=== PATIENT | male | born 1965 | race Caucasian/White ===

== ENCOUNTER 2016-07-12 15:31 | Inpatient (IN) | payer BC ==
[~2016-07-12] VITALS: Ht 177.8 cm; Wt 99.1 kg
[2016-07-12] MEDS ORDERED: SIMV40TA2 PO (18:03)
[2016-07-12] MEDS ORDERED: NVLG (18:07)
[2016-07-12] MEDS ORDERED: ASPI81TA28 PO (18:08)
[2016-07-12] MEDS ORDERED: CYCL10TA6 PO (18:09)
[2016-07-12] MEDS ORDERED: INSPMPNVLG (18:11)
[2016-07-12] MEDS ORDERED: NVLGI7030 SC (18:14)
[2016-07-12 18:16] VITALS: BMI 31.3
[2016-07-12] MEDS ORDERED: GLUCOSE 10 TABS/TUBE PO PRN (18:30)
[2016-07-12] MEDS ORDERED: ACETAMINOPHEN 325 MG TAB PO PRN (18:30)
[2016-07-12] MEDS ORDERED: DEXTROSE 50% 50 ML SYR IV PRN (18:30)
[2016-07-12] MEDS ORDERED: GLUCAGON FOR INJ 1 MG VIAL SQ PRN (18:30)
[2016-07-12] MEDS ORDERED: ALUMINUM/MAGNESIUM/SIMETH (MAALOX MAX) 30 ML UDC PO PRN (18:30)
[2016-07-12] MEDS ORDERED: GLUCOSE 40% GEL 15 GM TUBE PO PRN (18:30)
[2016-07-12] MEDS ORDERED: MAGNESIUM HYDROXIDE SUSP 30 ML UDC PO PRN (18:30)
[2016-07-12] MEDS ORDERED: ONDANSETRON INJ 2 MG/ML 2 ML VIAL IV PRN (18:30)
[2016-07-12 18:47] VITALS: BP 159/82; PULSE 94; TEMP 36.7; O2SAT 98
[2016-07-12] MEDS ORDERED: PATIENT'S ALLERGY INFO NEEDS ENTERED SCH (19:15)
--- NOTE | 2016-07-12 19:30 | History and Physical ---
History & Physical Date & Time of Service: Jul 12, 2016 at 19:22 Chief Complaint: Kidney Stone Primary Care Physician: No Doctor, Assigned History of Present Illness Source: patient Pt is a 50 yo male with hx of DM I on the insulin pump who presents to [facility] as a transfer from [facility] for ureteral stone management. Pt states he was diagnosed with a 7 mm stone last saturday by his urologist and was scheduled for extraction fo the stone next saturday. Pt was discharged on percocet for pain and states pain became unbearable. Pt presented to [place] [facility] today and unfortunately urology services were unavailable this weekend. Pt denies any fevers, chills, and states pain in 12/08 at this time. Pt also reports associated constipation from narcotics he was taking at home which he states added to his discomfort. Social History Smoking Status: Unknown if Ever Smoked Allergies Coded Allergies: No Known Allergies (Unverified , 07/12/16) Home Medications Scheduled Aspirin (Aspirin Ec), 81 MG PO DAILY Cyclobenzaprine Hcl (Flexeril), 1 TAB PO TID Insulin Aspart (novoLOG INSULIN PUMP ), 25 EA N/A DAILY Insulin Aspart 70/30 (Novolog Mix 70/30), 12 SC TIDM Simvastatin (Zocor), 40 MG PO QPM Review of Systems Constitutional: No chills, No fever Respiratory: No cough, No shortness of breath, No sputum Cardiovascular: No chest pain, No orthopnea Abdomen: + constipation, + nausea, + pain, No vomiting Musculoskeletal: No joint pain, No muscle pain Genitourinary - Male: No dysuria, No hematuria Neurologic: No paralysis, No weakness Endocrine: No excessive thirst, No fatigue Physical Exam Vital Signs Date Time Temp Pulse Resp B/P Pulse Ox O2 Delivery O2 Flow Rate FiO2 07/12/16 18:47 36.7 94 16 159/82 98 Room Air 07/12/16 18:16 Room Air General Appearance: WD/WN, + mild distress Neck: supple, no adenopathy Respiratory/Chest: chest non-tender, lungs clear, normal breath sounds Cardiovascular: no edema, no gallop Abdomen/GI: normal bowel sounds, non tender, soft, no organomegaly Neurologic/Psych: alert, oriented x 3 Diagnostics Laboratory Results Results Past 24 Hours Test 07/12/16 19:00 Range/Units Impression Assessment and Plan Pt is a 50 yo male with hx of DM I on insulin pump who presents as a transfer from [facility] for ureteral stone management as urology services were not available this weekend. Ureteral stone - 7 mm per patient. Will obtain records at this time. Start on IVF and flomax at this time. Will order CBC, BMP. Zofran 4 mg IV q 4 hr PRN nausea and morphine 2 mg IV q 3 hr PRN pain. Urology has been consulted for further management. Keep NPO after midnight. DM I - Patient may use own insulin pump at this time. Accuchecks. Advanced Directives Existing Advance Directive: No Existing Living Will: No Existing Power of Automotive Engineering Technician: No VTE Prophylaxis VTE Risk Assessment Done? Y/N: Yes Risk Level: Moderate
[2016-07-12 20:09] LABS: BASO % 0.1 %; BASO ABS # 0.01 K/uL (0-0.2); COMPLETE YES; EOS % 0.4 %; HEMATOCRIT 38.5 % (42-52); IG% 0.4 %; LYMPH % 9.2 %; LYMPH ABS # 1.04 K/uL (1.2-3.4); MEAN CELL VOLUME 87.9 fL (80-100); MEAN CORPUSCULAR HEMOGLOBIN 31.1 pg (25-34); MEAN CORPUSCULAR HGB CONC 35.3 g/dl (32-36); MEAN PLATELET VOLUME 9.8 fL (7.4-10.4); MONO % 8.1 %; NEUT % 81.8 %; PLATELET COUNT 261 K/uL (130-400); RED BLOOD COUNT 4.38 M/uL (4.7-6.1); WHITE BLOOD COUNT 11.34 K/uL (4.8-10.8)
[2016-07-12 20:25] LABS: BUN/CREATININE RATIO 8.4 (10-20); CALCIUM 8.8 mg/dl (8.5-10.1); CREATININE 1.4 mg/dl (0.60-1.40); POTASSIUM 4.6 mmol/L (3.5-5.1)
[2016-07-12] MEDS: SODIUM CHLORIDE 0.9% 1000ML 1,000 ML IV SCH (20:47)
[2016-07-12 23:08] VITALS: BP 143/83; PULSE 93; TEMP 36.7; O2SAT 95
[2016-07-13] MEDS: MoRPHine SULFATE 2 MG/ML CARP IV PRN ×4 (00:07→14:35)
[2016-07-13] MEDS: SODIUM CHLORIDE 0.9% 1000ML 1,000 ML IV SCH (05:48)
[2016-07-13 08:00] VITALS: BP 150/84; PULSE 93; TEMP 36.9; O2SAT 95
[2016-07-13 08:10] LABS: URINE APPEARANCE CLEAR (CLEAR); URINE BILIRUBIN NEG (NEG); URINE COLOR YELLOW; URINE NITRITE NEG (NEG); URINE PH 5.5 (4.5-7.5); URINE SPECIFIC GRAVITY 1.015 (1.000-1.030); UROBILINOGEN NEG (NEG)
[2016-07-13 08:11] LABS: MANUAL MICROSCOPIC REQUIRED? NO; REVIEW REQ? NO
[2016-07-13 08:17] LABS: ESTIMATED AVERAGE GLUCOSE 197 mg/dl; HA1C FLAG Normal (Normal)
--- NOTE | 2016-07-13 08:40 | DIAGNOSTIC IMAGING REPORT ---
KUB CLINICAL HISTORY: Right-sided stone. COMPARISON STUDY: CT of the abdomen and pelvis July 07, 2016. FINDINGS: A 9 mm calculus projects over the right transverse process of L3. This is unchanged since CT of July 07, 2016. No additional urinary calculi are identified. Bowel gas pattern is normal. IMPRESSION: No change in position of the 9 mm right ureteropelvic junction calculus. Electronically signed by: Robert Saleh M.D. 07/13/2016 8:38 AM Dictated Date/Time: 07/13/2016 8:36 AM
[2016-07-13 08:49] VITALS: O2SAT 95
[2016-07-13] MEDS ORDERED: POLYETHYLENE (MIRALAX) 17 GM PACK PO SCH (09:00)
[2016-07-13] MEDS ORDERED: TAMSULOSIN HCL 0.4 MG CAP PO SCH (09:00)
--- NOTE | 2016-07-13 09:47 | Urology Consultation ---
History General Date of Service: Jul 13, 2016. Primary Care Physician: No Doctor, Assigned Pt seen a urologist before?: Yes If yes, why?: Dr. Christianson in [place] for stones History of Present Illness 50 year old male admitted with right flank pain for right mid ureteral stone. He was seen by Dr. Christianson in [place] for a 7-8 mm right ureteral stone for which he was to have ULL w/ stent on Sunday 07/16. He was seen in the [place] ER yesterday, however, no urology biomedical electronics technician so was sent to [facility] ER. Pt is currently experiencing right sided pain. This is his first stone. Hx of IDDM- has insulin pump. Reviewed records from [place]- did have KUB 07/12 showing the 7 mm stone at level of L3. UA was clean. No culture. He has remained afebrile and vitals are stable. White count is slightly elevated at 11.51. Creatinine is 1.3 HPI - Stones Location: right, ureter Pain: right flank Imaging Imaging: KUB Laboratory Last 24 Hours Test 07/12/16 19:20 07/12/16 19:50 07/12/16 20:35 07/13/16 00:34 Hepatitis C Antibody Screen NEG White Blood Count 11.34 K/uL Red Blood Count 4.38 M/uL Hemoglobin 13.6 g/dL Hematocrit 38.5 % Mean Corpuscular Volume 87.9 fL Mean Corpuscular Hemoglobin 31.1 pg Mean Corpuscular Hemoglobin Concent 35.3 g/dl Platelet Count 261 K/uL Mean Platelet Volume 9.8 fL Neutrophils (%) (Auto) 81.8 % Lymphocytes (%) (Auto) 9.2 % Monocytes (%) (Auto) 8.1 % Eosinophils (%) (Auto) 0.4 % Basophils (%) (Auto) 0.1 % Neutrophils # (Auto) 9.29 K/uL Lymphocytes # (Auto) 1.04 K/uL Monocytes # (Auto) 0.92 K/uL Eosinophils # (Auto) 0.04 K/uL Basophils # (Auto) 0.01 K/uL RDW Standard Deviation 37.7 fL RDW Coefficient of Variation 11.8 % Immature Granulocyte % (Auto) 0.4 % Immature Granulocyte # (Auto) 0.04 K/uL Sodium Level 136 mmol/L Potassium Level 4.6 mmol/L Chloride Level 99 mmol/L Carbon Dioxide Level 25 mmol/L Anion Gap 12.0 mmol/L Blood Urea Nitrogen 12 mg/dl Creatinine 1.40 mg/dl Est Creatinine Clear Calc Drug Dose 73.7 ml/min Estimated GFR () 66.9 Estimated GFR (Non- 57.8 BUN/Creatinine Ratio 8.4 Random Glucose 253 mg/dl Calcium Level 8.8 mg/dl Bedside Glucose 292 mg/dl 120 mg/dl Test 07/13/16 06:29 07/13/16 06:50 07/13/16 07:50 Bedside Glucose 237 mg/dl Estimated Average Glucose 197 mg/dl Hemoglobin A1c 8.5 % Urine Color YELLOW Urine Appearance CLEAR Urine pH 5.5 Urine Specific Kennard 1.015 Urine Protein NEG Urine Glucose (UA) 3+ Urine Ketones 4+ Urine Occult Blood NEG Urine Nitrite NEG Urine Bilirubin NEG Urine Urobilinogen NEG Urine Leukocyte Esterase NEG Current Inpatient Medications Medications (Trade) Dose Ordered Sig/Lex Route Start Time Stop Time Status Last Admin Dose Admin Acetaminophen (Tylenol Tab) 650 mg Q4H PRN PO 07/12/16 18:30 08/11/16 18:29 Al Hydrox/Mg Hydrox/Simethicone (Maalox Max Susp) 15 ml Q4H PRN PO 07/12/16 18:30 08/11/16 18:29 Magnesium Hydroxide (Milk Of Magnesia Susp) 30 ml Q6H PRN PO 07/12/16 18:30 08/11/16 18:29 Ondansetron HCl (Zofran Inj) 4 mg Q6H PRN IV 07/12/16 18:30 08/11/16 18:29 Morphine Sulfate (MoRPHine SULFATE INJ) 2 mg Q3HWA PRN IV 07/12/16 18:30 07/26/16 18:29 07/13/16 09:24 2 MG Polyethylene (Miralax Powder Packet) 17 gm DAILY PO 07/13/16 09:00 08/12/16 08:59 Glucose (Glucose 40% Gel) 15-30 GRAMS 15 GRAMS... UD PRN PO 07/12/16 18:30 08/11/16 18:29 Glucose (Glucose Chew Tab) 4-8 Tablets 4 Tabl... UD PRN PO 1/12/17 18:30 08/11/16 18:29 Dextrose (Dextrose 50% 50ML Syringe) 25-50ML OF 50% DW IV FOR... UD PRN IV 07/12/16 18:30 08/11/16 18:29 Glucagon (Glucagon Inj) 1 mg UD PRN SQ 07/12/16 18:30 08/11/16 18:29 Tamsulosin HCl 0.4 mg 0.4 mg QAM PO 07/13/16 09:00 08/12/16 08:59 Sodium Chloride 1,000 ml @ 100 mls/hr Q10H IV 07/12/16 19:45 08/11/16 19:44 07/13/16 05:48 100 MLS/HR Cefazolin Sodium/ Sodium Chloride (Ancef Iv/Nss 50ml) 60 ml @ 100 mls/hr PREOP ONCE IV 07/13/16 14:00 07/13/16 14:35 UNV Labs were reviewed and are within normal limits unless listed below. Labs are available in the chart and at [facility] Past History diabetes, other (hyperlipidemia) Past Surgical History: other (insulin pump) Family History Diabetes mellitus FATHER FHx: heart disease MOTHER Social History Hx Tobacco Use In Past Year?: No Smoking: non-smoker Alcohol: no current use Drug use: none Marital status: Occupation status: employed Allergies Coded Allergies: No Known Allergies (Unverified , 07/12/16) Medications Home Medications: Home Meds and Scripts Medications Dose Route/Sig Max Daily Dose Days Date Category Novolog Mix 70/30 (Insulin Aspart Prota 70%/Aspart 30%) Susp 12 SC TIDM 07/12/16 Reported novoLOG INSULIN PUMP (Insulin Aspart) 1 Ea Inj 25 Ea N/A DAILY 07/12/16 Reported Flexeril (Cyclobenzaprine Hcl) 10 Mg Tab 1 Tab PO TID 30 07/12/16 Reported Aspirin Ec (Aspirin) 81 Mg Tab 81 Mg PO DAILY 07/12/16 Reported Zocor (Simvastatin) 40 Mg Tab 40 Mg PO QPM 07/12/16 Reported Inpatient Medications: Current Inpatient Medications Medications (Trade) Dose Ordered Sig/Lex Route Start Time Stop Time Status Last Admin Dose Admin Acetaminophen (Tylenol Tab) 650 mg Q4H PRN PO 07/12/16 18:30 08/11/16 18:29 Al Hydrox/Mg Hydrox/Simethicone (Maalox Max Susp) 15 ml Q4H PRN PO 07/12/16 18:30 08/11/16 18:29 Magnesium Hydroxide (Milk Of Magnesia Susp) 30 ml Q6H PRN PO 07/12/16 18:30 08/11/16 18:29 Ondansetron HCl (Zofran Inj) 4 mg Q6H PRN IV 07/12/16 18:30 08/11/16 18:29 Morphine Sulfate (MoRPHine SULFATE INJ) 2 mg Q3HWA PRN IV 07/12/16 18:30 07/26/16 18:29 07/13/16 09:24 2 MG Polyethylene (Miralax Powder Packet) 17 gm DAILY PO 07/13/16 09:00 08/12/16 08:59 Glucose (Glucose 40% Gel) 15-30 GRAMS 15 GRAMS... UD PRN PO 07/12/16 18:30 08/11/16 18:29 Glucose (Glucose Chew Tab) 4-8 Tablets 4 Tabl... UD PRN PO 07/12/16 18:30 08/11/16 18:29 Dextrose (Dextrose 50% 50ML Syringe) 25-50ML OF 50% DW IV FOR... UD PRN IV 07/12/16 18:30 08/11/16 18:29 Glucagon (Glucagon Inj) 1 mg UD PRN SQ 07/12/16 18:30 08/11/16 18:29 Tamsulosin HCl 0.4 mg 0.4 mg QAM PO 07/13/16 09:00 08/12/16 08:59 Sodium Chloride 1,000 ml @ 100 mls/hr Q10H IV 07/12/16 19:45 08/11/16 19:44 07/13/16 05:48 100 MLS/HR Cefazolin Sodium/ Sodium Chloride (Ancef Iv/Nss 50ml) 60 ml @ 100 mls/hr PREOP ONCE IV 07/13/16 14:00 07/13/16 14:35 UNV Review of Systems Review of Systems Constitutional: No fever Neurological: No dizzy Endocrine: No excessive thirst Gastrointestinal: + see HPI Cardiovascular: No chest pain Skin: No rash Blood / Lymphatic: No bleed easily Ears / Nose / Throat: No hearing loss Psychologic / Mental: No nervous Male : + see HPI Physical Exam Vital Signs: Vital Signs Past 12 Hours Date Time Temp Pulse Resp B/P Pulse Ox O2 Delivery O2 Flow Rate FiO2 07/13/16 08:49 95 Room Air 07/13/16 08:00 36.9 93 17 150/84 95 Room Air 07/13/16 00:00 Room Air 07/12/16 23:08 36.7 93 16 143/83 95 Room Air Physical Exam: General Appearance: WD/WN, no apparent distress Eyes: bilateral eyes normal inspection ENT: hearing grossly normal Neck: supple, no JVD Respiratory/Chest: chest non-tender, lungs clear, normal breath sounds, no respiratory distress, no accessory muscle use Cardiovascular: regular rate, rhythm, no edema, no gallop, no JVD, no murmur Gastrointestinal: Abdomen: normal abdomen (insulin pump) Extremities: normal range of motion, non-tender, normal inspection, no pedal edema, no calf tenderness, normal capillary refill Neurologic/Psychiatric: alert, normal mood/affect, oriented x 3 Skin: normal color, warm/dry, no rash Assessment & Plan Assessment & Plan Imaging: KUB Treatment Planned: cystoscopy w/ stent Right ureteral stone Personally viewed KUB from this am. 8 mm right sided ureteral stone visible near L3. Discussed options of pt - observe vs stent placement. Discussed risks, benefits and answered all questions. He would like to proceed with cystoscopy with right ureteral stent placement. Remains NPO. Called to add on to OR schedule with Dr. Carvalho- all are aware- most likely after 3pm. Consent signed on the chart. Ordered UA, urine culture, CXR and EKG. IV Ancef 2 gm in [facility]SS biomedical electronics technician to OR for preop- did not use Cipro since premixed with D5 W - pt is diabetic- BS this am 286. Recommend sending pt home on Cipro 500 mg BID x 3 days. He may be discharged to home after stent is placed later today. He will keep his ureteroscopy laser litho with Dr. Christianson on Saturday as previously scheduled. Thanks for the consult.
[2016-07-13] MEDS ORDERED: CIPR-255 PO (09:53)
--- NOTE | 2016-07-13 09:58 | DIAGNOSTIC IMAGING REPORT ---
CHEST 2 VIEWS ROUTINE CLINICAL HISTORY: preop COMPARISON STUDY: No previous studies for comparison. FINDINGS: The heart is mildly enlarged. There is aortic tortuosity/ectasia. There is no focal pulmonary consolidation. There is no failure. There are no pleural effusions.[ IMPRESSION: No active disease in the chest. Electronically signed by: Lonnie Salinas M.D. 07/13/2016 9:57 AM Dictated Date/Time: 07/13/2016 9:56 AM
--- NOTE | 2016-07-13 09:58 | Discharge Instructions ---
Discharge Instructions Admission Reason for Admission: Kidney Stone Discharge Discharge Diagnosis / Problem: Right ureteral stone, s/p right ureteral stent Discharge Goals Goal(s): Decrease discomfort, Improve function, Therapeutic intervention ( lithotripsy on Saturday) Activity Recommendations Activity Limitations: resume your previous activity Lifting Limitations: none Exercise/Sports Limitations: as tolerated May Resume Sexual Activity: when tolerated Shower/Bathe: no limitations Driving or Machine Use: no driving while taking narcotics . Instructions / Follow-Up Instructions / Follow-Up Medications: resume prior medications - CIPRO: 500mg twice a day, take for three days - FLOMAX: relaxes ureters and prostate, take once a day, 0.4mg - OXYCODONE: take as needed for pain, DO NOT TAKE MORE THAN PRESCRIBED FOLLOW UP - keep follow up for laser lithotripsy on Saturday with Dr. Christianson in [facility] Diet Patient's current hospital diet: Diabetes Type 1 Diet Discharge Diet Recommended Diet: Diabetes Type 1 Diet Procedures Procedures Performed: Cystoscopy with right ureteral stent - Dr. Joshua Carvalho Pending Studies Studies pending at discharge: no Laboratory Results Last Resulted CBC 07/12/16 19:50 Red Blood Count 4.38, Mean Corpuscular Volume 87.9, Mean Corpuscular Hemoglobin 31.1, Mean Corpuscular Hemoglobin Concent 35.3, Mean Platelet Volume 9.8, Neutrophils (%) (Auto) 81.8, Lymphocytes (%) (Auto) 9.2, Monocytes (%) (Auto) 8.1, Eosinophils (%) (Auto) 0.4, Basophils (%) (Auto) 0.1, Neutrophils # (Auto) 9.29, Lymphocytes # (Auto) 1.04, Monocytes # (Auto) 0.92, Eosinophils # (Auto) 0.04, Basophils # (Auto) 0.01 Last Resulted BMP 07/12/16 19:50 Hemoglobin A1c Test 07/13/16 06:50 Range/Units Estimated Average Glucose 197 mg/dl Hemoglobin A1c 8.5 H 4.5-5.6 % Medical Emergencies . Who to Call and When: Medical Emergencies: If at any time you feel your situation is an emergency, please call 911 immediately. . Non-Emergent Contact Non-Emergency issues call your: Urologist Call Non-Emergent contact if: you have a fever, you have any medication questions . . "Provider Documentation" section prepared by Rigoberto Galvez. VTE Core Measure Inpt VTE Proph given/why not?: SCD's [place] Drug Monitoring Program Search Results: no issues identified
[2016-07-13] MEDS ORDERED: TAMS0.4C38 PO (09:59)
[2016-07-13] MEDS ORDERED: OXYC-57 PO (09:59)
[2016-07-13 11:44] VITALS: Ht 177.8 cm; Wt 99.1 kg
[2016-07-13] MEDS ORDERED: CEFAZOLIN IV ONE (14:00)
[2016-07-13] MEDS ORDERED: SODIUM CHLORIDE 0.9% IV ONE (14:00)
[2016-07-13] MEDS ORDERED: PROPOFOL IV EMULSION 10 MG/ML 20 ML VIAL IV ONE ×2 (14:58→15:17)
[2016-07-13] MEDS ORDERED: LIDOCAINE HCL 2% 2 ML VIAL (20MG/ML) ONE (14:58)
[2016-07-13] MEDS ORDERED: FENTANYL CITRATE INJ 50 MCG/1 ML 2 ML VIAL ONE ×2 (14:59→15:27)
[2016-07-13] MEDS ORDERED: MIDAZOLAM HCL 1 MG/ML 2ML VIAL ONE ×2 (14:59→15:17)
[2016-07-13] MEDS ORDERED: ONDANSETRON INJ 2 MG/ML 2 ML VIAL IV PRN ×2 (15:15→16:15)
[2016-07-13] MEDS ORDERED: HYDROmorphone INJ 0.5 MG/0.5 ML SYR IV PRN (15:15)
[2016-07-13] MEDS ORDERED: ATROPINE SULFATE 0.1 MG/ML 5ML SYR IV PRN ×2 (15:15→16:15)
[2016-07-13] MEDS ORDERED: FENTANYL CITRATE INJ 50 MCG/1 ML 2 ML VIAL IV PRN ×2 (15:15→16:15)
[2016-07-13] MEDS ORDERED: EpHEDrine SULFATE INJ 50 MG/ML AMP IV PRN ×2 (15:15→16:15)
[2016-07-13] MEDS ORDERED: METOPROLOL TARTRATE 1 MG/ML VIAL ONE (15:47)
[2016-07-13] MEDS ORDERED: PHEN-775 PO (15:49)
--- NOTE | 2016-07-13 15:52 | [facility] Post Operative Brief Note ---
Immediate Operative Summary Operative Date Jul 13, 2016. Pre-Operative Diagnosis Right ureteral stone and intractable colic Post-Operative Diagnosis Same Procedure(s) Performed Cystoscopy, right retrograde pyelography and right ureteral stent placement Surgeon Deven Ramsay MD Director Of Public Works Surgeon(s) NA Estimated Blood Loss NA Findings Good stent position on fluoroscopy, R radiopaque proximal ureteral stone Specimens NA Drains 6 fr 26 cm JJ ureteral stent on right Anesthesia MAC Complication(s) None Disposition Recovery Room / PACU
[2016-07-13] MEDS ORDERED: CONRAY 30% 150ML BOTTLE INSTIL ONE (15:56)
--- NOTE | 2016-07-13 16:04 | DIAGNOSTIC IMAGING REPORT ---
RETROGRADE UROGRAM CLINICAL HISTORY: Right-sided stent placement COMPARISON STUDY: Outside CT scan dated 07/07/2016, KUB dated 07/13/2016 FINDINGS: 37 seconds of fluoroscopic time was utilized. 5 fluoroscopic spot images are provided for interpretation. The findings demonstrate retrograde catheterization of the right ureter. A guidewire was placed in the right renal pelvis. A proximal right ureteral calculus is visualized at the L3 level. The final 2 images demonstrate placement of a double-pigtail right-sided nephroureteral stent. IMPRESSION: Right retrograde study with placement of a double-pigtail right-sided nephroureteral stent. Electronically signed by: Lonnie Salinas M.D. 07/13/2016 4:02 PM Dictated Date/Time: 07/13/2016 3:59 PM
--- NOTE | 2016-07-13 16:09 | Anesthesiology Progress Note ---
Anesthesia Post Op Note Date & Time Jul 13, 2016 at 16:06 Vital Signs Pain Intensity: 0 Vital Signs Past 12 Hours Date Time Temp Pulse Resp B/P Pulse Ox O2 Delivery O2 Flow Rate FiO2 07/13/16 15:43 37.0 115 15 104/68 96 Room Air 07/13/16 09:50 110 130/82 07/13/16 08:49 95 Room Air 07/13/16 08:00 36.9 93 17 150/84 95 Room Air 07/13/16 07:21 Room Air Notes Mental Status: alert / awake / arousable, participated in evaluation Pt Amnestic to Procedure: Yes Nausea / Vomiting: adequately controlled Pain: adequately controlled Airway Patency, RR, SpO2: stable & adequate BP & HR: stable & adequate Hydration State: stable & adequate Anesthetic Complications: no major complications apparent The patient did well. His postop BSG was 200. The patient will reconnect his insulin pump and give treat his BSG as he normally would.
[2016-07-13] MEDS ORDERED: HYDROmorphone INJ 2 MG/ML SYR/VIAL IV PRN (16:15)
[2016-07-13] MEDS ORDERED: MEPERIDINE HCL 25 MG/ML CARP IV PRN (16:15)
[2016-07-13] MEDS ORDERED: NALOXONE HCL 0.4 MG/1 ML VIAL/CARP IV PRN (16:15)
[2016-07-13] MEDS ORDERED: LABETALOL HCL IV 5 MG/ML 20ML IV PRN (16:15)
[2016-07-13] MEDS ORDERED: PHENYLEPHRINE 100MCG/ML 5ML SYR IV PRN (16:15)
[2016-07-13] MEDS ORDERED: FLUMAZENIL 0.1 MG/1 ML 10 ML VIAL IV PRN (16:15)
--- NOTE | 2016-07-13 16:31 | Discharge Summary ---
Discharge Summary Admission Date: Jul 12, 2016 at 15:31 Discharge Date: Jul 13, 2016 Discharge Disposition: Home Principal Diagnosis: Right ureteral stent Procedures: cystoscopy with right ureteral stent placement Consultations: Urology Medication Reconciliation New Medications: Ciprofloxacin Hcl (Cipro) 500 Mg Tab 1 TAB PO BID for 3 Days, #6 TAB 0 Refills Oxycodone/Acetaminophen 5MG/325MG (Percocet 5MG/325MG) Tab 1 TABLET PO Q6H PRN for Pain, #20 TAB Phenazopyridine Hcl (Pyridium) 200 Mg Tab 200 MG PO TID PRN for Bladder pain, #30 TAB Tamsulosin Hcl (Flomax) 0.4 Mg Cap 1 CAP PO DAILY for 10 Days, #10 CAP 0 Refills Continued Medications: Aspirin (Aspirin Ec) 81 Mg Tab 81 MG PO DAILY Cyclobenzaprine Hcl (Flexeril) 10 Mg Tab 1 TAB PO TID for 30 Days, #90 TAB Insulin Aspart (novoLOG INSULIN PUMP ) 1 Ea Inj 25 EA N/A DAILY, EA Insulin Aspart 70/30 (Novolog Mix 70/30) Susp 12 SC TIDM, BTL Simvastatin (Zocor) 40 Mg Tab 40 MG PO QPM, TAB Discharge Exam Patient doing well prior to cystoscopy, pain had been resolved. Discussed plan to be d/c to home and follow up with urology in [place] for lithotripsy Review of Systems: Constitutional: No chills, No fatigue, No fever, No problem reported, No sweats, No weakness, No weight loss Eyes: No diplopia, No discharge, No eye pain, No problem reported, No redness, No worsening of vision ENT: No dental problems, No hearing loss, No nasal symptoms, No problem reported, No sore throat, No tinnitus, No trouble swallowing, No unusual epistaxis Respiratory: No cough, No dyspnea at rest, No dyspnea on exertion, No hemoptysis, No problem reported, No shortness of breath, No sputum, No wheezing Cardiovascular: No PND, No chest pain, No claudication, No edema, No orthopnea, No palpitations, No problem reported Abdomen: No GI bleeding, No constipation, No diarrhea, No nausea, No pain, No problem reported, No vomiting Musculoskeletal: No calf pain, No joint pain, No muscle pain, No problem reported, No swelling Genitourinary - Male: No dysuria, No hematuria, No urinary frequency, No urinary urgency Neurologic: No balance problems, No memory loss, No numbness/tingling, No paralysis, No problem reported, No vertigo, No weakness Psychiatric: No anhedonism, No anxiety, No depression symptoms, No insomnia , No problem reported, No substance abuse Endocrine: No excessive thirst, No excessive urination, No fatigue, No problem reported Hematologic / Lymphatic: No abnormal bleeding/bruising, No clotting problems , No night sweats, No problem reported, No swollen lymph nodes Integumentary: No bleeding, No color change, No itch, No new/changing skin lesions, No problem reported, No rash Physical Exam: General Appearance: WD/WN, no apparent distress Eyes: normal inspection, EOMI, sclerae normal ENT: normal ENT inspection, hearing grossly normal, pharynx normal Neck: supple, no adenopathy, no JVD, trachea midline Respiratory/Chest: chest non-tender, lungs clear, normal breath sounds, no respiratory distress, no accessory muscle use Cardiovascular: regular rate, rhythm, no edema, no gallop, no JVD, no murmur , normal peripheral pulses Abdomen / GI: normal bowel sounds, non tender, soft, no organomegaly Extremities: normal inspection, no calf tenderness, normal capillary refill , no pedal edema, normal range of motion Neurologic/Psychiatric: branding machine operator II-XII nml as tested, no motor/sensory deficits , alert, normal mood/affect, normal reflexes, oriented x 3 Skin: normal color, warm/dry, no rash Lymphatic: no adenopathy Hospital Course Pt is a 50 yo male with hx of DM I on insulin pump who presents as a transfer from [facility] for ureteral stone management as urology services were not available this weekend. Ureteral stone - 9 mm right sided on KUB no renal failure, no evidence of severe UTI, pain controlled with Morphine evaluated by urology in the morning, had a cystoscopy with right ureteral stent placement d/c home on Cipro 500mg BID x 3 days, Percocet 5/325mg PRN, Flomax, Pyridium will follow up with Dr. Wang on Saturday in [place] for lithotripsy DM I - Patient may use own insulin pump at this time. Accuchecks. Total Time Spent: Less than 30 minutes This includes examination of the patient, discharge planning, medication reconciliation, and communication with other providers. Discharge Instructions Please refer to the electronic Patient Visit Report (Discharge Instructions) for additional information. Follow-Up Dr. Wang on Saturday Additional Copies To Chepe Wang MD
[2016-07-13 16:45] VITALS: O2SAT 98
[2016-07-13 17:18] VITALS: BP 166/96; PULSE 89; TEMP 36.5; O2SAT 98
[2016-07-13 18:03] VITALS: BP 166/96; PULSE 89; TEMP 36.5; O2SAT 98
--- NOTE | 2016-07-13 19:56 | OPERATIVE REPORT ---
DATE OF OPERATION: 07/13/2016 PREOPERATIVE DIAGNOSIS: Right 8 mm proximal ureteral stone with intractable renal colic. POSTOPERATIVE DIAGNOSIS: Same. PROCEDURE: Cystoscopy, right retrograde pyelography, right ureteral stent placement. SURGEON: Dr. Joshua Carvalho. BOARDING HOUSE COOK: None. ANESTHESIA: Monitored anesthesia care with sedation. COMPLICATIONS: None. ESTIMATED BLOOD LOSS: None. SPECIMENS SENT TO PATHOLOGY: None. DRAINS LEFT IN PLACE: Include a 6-Yemeni 26 cm right-sided soft double J Cook ureteral stent. FINDINGS: Good stent position on fluoroscopy, radiopaque stone, relative impaction of the stone in the proximal ureter with hydronephrotic drip. BRIEF HISTORY: Mr. Barroso is a 50-year-old male with a history of new onset right flank pain, found to have a right ureteral stone on CT scan imaging. The patient resides in [place] and seeing Dr. Wang for this. He is planned for endoscopic management on Saturday the 16 of July. Unfortunately, the patient's pain worsened and became intractable. He was transferred to [facility] for assistance with his care. Please see a urologic consultation and hospitalist note for further details. The patient was covered with intravenous Ancef prior to the operating room. Informed consent reviewed. SCDs used for DVT prophylaxis. The patient's sister was present with him today. PROCEDURE: The patient was properly identified and brought to the operative suite after identification of appropriate consent on the chart. Monitored anesthesia care with sedation was initiated. The patient was prepped and draped in standard fashion for this procedure. remarketing rep-out procedure was followed. A 22-Yemeni rigid cystoscope was passed into the bladder under direct visualization demonstrating a normal urethra, somewhat elevated bladder neck with minimal lateral lobe hypertrophy. Bladder was surveyed in its entirety demonstrating grade 1-2 trabeculation of the bladder with no intravesical lesions, papillary masses, or calculi. Ureteral orifices were noted in the normal anatomic location bilaterally. Right-sided ureteral orifice was cannulated using an open-ended catheter and gentle retrograde pyelography was performed. This demonstrated a normal distal ureter up to the level of the radiopacity present on kier operator film the right upper quadrant consistent with the patient's KUB findings on admission of a right 8 mm proximal ureteral stone. A small amount of contrast was able to be passed proximally to this mild to moderately dilated collecting system. This was followed by a sensor wire which was advanced and coiled within the right collecting system. A 6-Yemeni 26 cm double-J ureteral stent was able to be advanced up to the level of the right renal pelvis, although it need some resistance passing the level of the stone. Full coil was present within the renal pelvis and on direct visualization within the bladder. A hydronephrotic drip with cloudy urine with some mild debris was appreciated with no tita purulence. The patient tolerated the procedure well without difficulty. Bladder was drained, the cystoscope was removed, anesthesia was reversed and the patient was transferred to recovery room in stable condition. FOLLOWUP CARE: The patient should be stable for discharge home later today with a prescription for Percocet, Flomax, ciprofloxacin for coverage until he has seen by his primary urologist and Pyridium for bladder spasms. The patient is instructed to contact our service should he note any fevers, chills, nausea, vomiting or other significant difficulties in the postoperative period. He should be able to follow up with his primary urologist for surgery as planned. I attest to the content of the Intraoperative Record and any orders documented therein. Any exceptio ns are noted below.
== END 2016-07-13 19:40 | disposition home or self-care (01) | DRG 694 ==
LOC: C.MSN 15:31
PROVIDERS: ADMIT Hospitalist; ATTEND Internal Medicine
PROC: BT1D0ZZ Fluoroscopy of Right Kidney, Ureter and Bladder using High Osmolar Contrast (ICD-10-PCS; principal; 2016-07-13 15:00)
PROC: 0T768DZ Dilation of Right Ureter with Intraluminal Device, Via Natural or Artificial Opening Endoscopic (ICD-10-PCS; principal; 2016-07-13 15:00)
DX: N20.1 Calculus of ureter (principal); N23 Unspecified renal colic; E10.9 Type 1 diabetes mellitus without complications; E78.5 Hyperlipidemia, unspecified; Z79.82 Long term (current) use of aspirin; Z79.899 Other long term (current) drug therapy; Z83.3 Family history of diabetes mellitus; Z82.49 Family history of ischemic heart disease and other diseases of the circulatory system